=== PATIENT | female | born 1935 | race Caucasian/White ===

== ENCOUNTER 2017-10-14 14:25 | Inpatient (IN) ==
[2017-10-14 15:55] LABS: Basophils # 0.1 10*3/uL (0.0-0.2); Basophils % 0.6 % (0.0-0.8); Eosinophils # 0.2 10*3/uL (0.0-0.87); Eosinophils % 1.9 % (0.00-10.9); Hematocrit 36.6 VOL% (35.7-47.0); Hemoglobin 11.9 GM/DL (12.0-16.0); Immature Granulocytes % 0.3 %; Immature Granulocytes Absolute 0.02 #; Lymphocytes # 1.7 10*3/uL (1.4-4.0); Lymphocytes % 21.4 % (21.3-54.2); Mean Corpuscular HGB Conc 32.5 GM/DL (32-36); Mean Corpuscular Hemoglobin 28 PG (27-34); Mean Corpuscular Volume 87.1 FL (87-102); Mean Platelet Volume 12.7 FL (9.6-12.0); Monocytes # 0.7 10*3/uL (0.11-0.8); Monocytes % 8.5 % (1.7-12.7); Neutrophils # 5.3 10*3/uL (1.4-7.4); Neutrophils % 67.3 % (38.7-73.9); Platelet Count 202 T/CUMM (130-400); Red Cell Distribution Width 12.6 % (9.3-17.3); White Blood Count 7.9 T/CUMM (4-12)
[2017-10-14 16:04] LABS: PT Patient Result 10.6 SECS; Partial Thromboplastin Time 25.4 SECS (0-40)
[2017-10-14 16:15] LABS: Alanine Aminotransferase 25 U/L (13-56); Albumin 3.7 G/DL (3.4-5.0); Alkaline Phosphatase 55 U/L (45-117); Aspartate Amino Transferase 19 U/L (0-37); Bilirubin,Total < 0.39 MG/DL (0.2-1.0); Calcium 9.4 MG/DL (8.5-10.1); Total Protein 6.5 G/DL (6.4-8.3)
[2017-10-14 16:16] LABS: Blood Urea Nitrogen 17 MG/DL (7-18); Glucose 129 MG/DL (74-106); Osmolality,Calculated 276.8 MOS/KG (273-304); Potassium 4.3 MMOL/L (3.5-5.1); Sodium 137 MMOL/L (136-145)
[2017-10-14] MEDS ORDERED: ASPIRIN 325 MG TABLET PO STA (16:58)
[2017-10-14] MEDS ORDERED: NITROGLYCERIN SL 0.4 MG TABLET SL PRN (16:58)
[2017-10-14] MEDS ORDERED: NITROGLYCERIN 2% OINT 1 INCH/GM PACK TOP STA (16:58)
[2017-10-14] MEDS ORDERED: ENOXAPARIN 60 MG/0.6 ML SYRINGE SUBCUT STA (16:58)
[2017-10-14] MEDS ORDERED: MORPHINE 2 MG/1 ML SYRINGE IV STA (17:00)
[2017-10-14] MEDS ORDERED: ONDANSETRON 4 MG/2 ML VIAL IV STA (17:00)
[2017-10-14] MEDS ORDERED: DOCUSATE SODIUM 100 MG CAPSULE PO PRN (18:22)
[2017-10-14] MEDS ORDERED: ZALEPLON 5 MG CAPSULE PO PRN (18:22)
[2017-10-14] MEDS ORDERED: guaiFENesin/DM ER 600-30 MG TABLET PO PRN (18:22)
[2017-10-14] MEDS ORDERED: ACETAMINOPHEN 325 MG TABLET PO PRN (18:22)
[2017-10-14] MEDS ORDERED: MAGNESIUM SULF RIDER 4 GM in PREMIX 1 EACH IV PRN (18:22)
[2017-10-14] MEDS ORDERED: POTASSIUM CHLORIDE 20 MEQ TABLET PO PRN (18:22)
[2017-10-14] MEDS ORDERED: MAGNESIUM SULF RIDER 2 GM in PREMIX 1 EACH IV PRN ×2 (18:22→19:18)
[2017-10-14] MEDS ORDERED: MORPHINE 2 MG/1 ML SYRINGE ONE (18:23)
[2017-10-14] MEDS ORDERED: NITROGLYCERIN 2% OINT 1 INCH/GM PACK TOP ONE (18:23)
[2017-10-14] MEDS ORDERED: ENOXAPARIN 60 MG/0.6 ML SYRINGE ONE (18:23)
[2017-10-14] MEDS ORDERED: ONDANSETRON 4 MG/2 ML VIAL ONE (18:23)
[2017-10-14] MEDS ORDERED: ASPIRIN 325 MG TABLET ONE (18:24)
[2017-10-14] MEDS ORDERED: GLUCAGON 1 MG VIAL IM PRN (18:29)
[2017-10-14] MEDS ORDERED: DEXTROSE 50% 25 GM/50 ML VIAL IV PRN (18:29)
[2017-10-14] MEDS ORDERED: DIAZEPAM 5 MG TABLET PO ONE (19:18)
[2017-10-14] MEDS ORDERED: diphenhydrAMINE CAP 25 MG CAPSULE PO ONE (19:18)
[2017-10-14] MEDS ORDERED: POTASSIUM CHLORIDE RIDER 10 MEQ in PREMIX 1 EACH IV PRN (19:18)
[2017-10-14 20:43] LABS: Troponin I Only 0.742 NG/ML (0.00-0.045)
[2017-10-14] MEDS ORDERED: PANTOPRAZOLE 40 MG TABLET PO ONE (21:28)
[2017-10-14] MEDS ORDERED: ALPRAZolam 0.5 MG TABLET ONE (21:28)
[2017-10-14] MEDS ORDERED: CARVEDILOL 3.125 MG TABLET ONE (21:28)
[2017-10-14] MEDS ORDERED: INSULIN LISPRO 100 UNIT/ML SUBCUT ONE (21:30)
[2017-10-14] MEDS: LISINOPRIL 10 MG TABLET PO SCH (21:50)
[2017-10-14] MEDS: CARVEDILOL 3.125 MG TABLET PO SCH (21:50)
[2017-10-14] MEDS: INSULIN LISPRO 100 UNIT/ML SUBCUT SCH (21:50)
[2017-10-14] MEDS: PANTOPRAZOLE 40 MG TABLET PO SCH (21:50)
[2017-10-14] MEDS: ALPRAZolam 0.5 MG TABLET PO PRN (21:50)
[2017-10-14] MEDS: ROSUVASTATIN 20 MG TABLET PO SCH (21:55)
[2017-10-14 22:14] LABS: Troponin I Only 0.826 NG/ML (0.00-0.045)
[2017-10-15 04:27] LABS: Basophils # 0.1 10*3/uL (0.0-0.2); Basophils % 0.9 % (0.0-0.8); Eosinophils # 0.2 10*3/uL (0.0-0.87); Eosinophils % 2.9 % (0.00-10.9); Hematocrit 32.2 VOL% (35.7-47.0); Hemoglobin 10.8 GM/DL (12.0-16.0); Immature Granulocytes % 0.2 %; Immature Granulocytes Absolute 0.01 #; Lymphocytes # 2.2 10*3/uL (1.4-4.0); Lymphocytes % 37.1 % (21.3-54.2); Mean Corpuscular HGB Conc 33.5 GM/DL (32-36); Mean Corpuscular Hemoglobin 29 PG (27-34); Mean Corpuscular Volume 85.4 FL (87-102); Mean Platelet Volume 12.3 FL (9.6-12.0); Monocytes # 0.6 10*3/uL (0.11-0.8); Monocytes % 10.3 % (1.7-12.7); Neutrophils # 2.8 10*3/uL (1.4-7.4); Neutrophils % 48.6 % (38.7-73.9); Platelet Count 171 T/CUMM (130-400); Red Blood Count 3.77 MC/CUMM (3.8-5.5); Red Cell Distribution Width 12.8 % (9.3-17.3); White Blood Count 5.8 T/CUMM (4-12)
[2017-10-15] MEDS ORDERED: DIAZEPAM 5 MG TABLET PO ONE (06:00)
[2017-10-15] MEDS ORDERED: diphenhydrAMINE CAP 25 MG CAPSULE PO ONE (06:00)
[2017-10-15 07:50] LABS: Osmolality,Calculated 280.5 MOS/KG (273-304); Risk Ratio 6.6; Thyroid Stimulating Hormone 3.54 uIU/ml (0.358-3.74)
[2017-10-15] MEDS ORDERED: diphenhydrAMINE CAP 50 MG CAPSULE ONE (08:25)
[2017-10-15] MEDS ORDERED: DIAZEPAM 5 MG TABLET ONE (08:25)
[2017-10-15] MEDS ORDERED: ENOXAPARIN 40 MG/0.4 ML SYRINGE SUBCUT SCH (09:00)
[2017-10-15] MEDS ORDERED: LIDOCAINE 1% 20 ML VIAL ONE (09:09)
[2017-10-15] MEDS ORDERED: MIDAZOLAM 2 MG/2 ML VIAL ONE (09:10)
[2017-10-15] MEDS ORDERED: fentaNYL 100 MCG/2 ML VIAL ONE (09:10)
[2017-10-15] MEDS ORDERED: ENOXAPARIN 30 MG/0.3 ML SYRINGE ONE (09:31)
[2017-10-15] MEDS ORDERED: TIROFIBAN 5,000 MCG/100 ML PREMIX IV ONE (09:32)
[2017-10-15] MEDS ORDERED: TICAGRELOR 90 MG TABLET ONE (10:10)
[2017-10-15] MEDS ORDERED: SODIUM CHLORIDE 0.9% 1,000 ML IV SCH (10:30)
[2017-10-15] MEDS ORDERED: HYDROmorphone 2 MG/1 ML VIAL IV PRN (10:33)
[2017-10-15] MEDS ORDERED: HYDROmorphone 2 MG/1 ML VIAL ONE (10:54)
[2017-10-15] MEDS: LEVOTHYROXINE 50 MCG TABLET PO SCH (15:51)
[2017-10-15] MEDS: INSULIN LISPRO 100 UNIT/ML SUBCUT SCH ×4 (15:51→22:19)
[2017-10-15] MEDS: CARVEDILOL 3.125 MG TABLET PO SCH ×2 (15:52→22:19)
[2017-10-15] MEDS: ALPRAZolam 0.5 MG TABLET PO PRN (16:05)
[2017-10-15] MEDS: LISINOPRIL 10 MG TABLET PO SCH (16:05)
[2017-10-15] MEDS: ASPIRIN EC 81 MG TABLET PO SCH (16:06)
[2017-10-15] MEDS: VITAMIN E 1000 UNIT CAPSULE PO SCH (16:06)
[2017-10-15] MEDS: FOLIC ACID 1 MG TABLET PO SCH (16:06)
[2017-10-15] MEDS: PANTOPRAZOLE 40 MG TABLET PO SCH (22:18)
[2017-10-15] MEDS: TICAGRELOR 90 MG TABLET PO SCH (22:18)
[2017-10-15] MEDS: ROSUVASTATIN 20 MG TABLET PO SCH (22:24)
[2017-10-16] MEDS: LEVOTHYROXINE 50 MCG TABLET PO SCH (06:54)
[2017-10-16 06:55] LABS: Basophils % 0.7 % (0.0-0.8); Eosinophils # 0.2 10*3/uL (0.0-0.87); Eosinophils % 2.7 % (0.00-10.9); Hematocrit 31.5 VOL% (35.7-47.0); Hemoglobin 10.9 GM/DL (12.0-16.0); Immature Granulocytes % 0.4 %; Immature Granulocytes Absolute 0.02 #; Lymphocytes # 1.1 10*3/uL (1.4-4.0); Lymphocytes % 20.7 % (21.3-54.2); Mean Corpuscular HGB Conc 34.6 GM/DL (32-36); Mean Corpuscular Hemoglobin 29 PG (27-34); Mean Corpuscular Volume 84.5 FL (87-102); Mean Platelet Volume 11.8 FL (9.6-12.0); Monocytes # 0.7 10*3/uL (0.11-0.8); Monocytes % 12.3 % (1.7-12.7); Neutrophils # 3.5 10*3/uL (1.4-7.4); Neutrophils % 63.2 % (38.7-73.9); Platelet Count 168 T/CUMM (130-400); Red Blood Count 3.73 MC/CUMM (3.8-5.5); Red Cell Distribution Width 12.6 % (9.3-17.3); White Blood Count 5.5 T/CUMM (4-12)
[2017-10-16 07:32] LABS: Calcium 8.3 MG/DL (8.5-10.1); Osmolality,Calculated 280.4 MOS/KG (273-304)
[2017-10-16 07:36] LABS: CKMB % 6.8 %
[2017-10-16 07:45] LABS: Troponin I Only 1.83 NG/ML (0.00-0.045)
[2017-10-16] MEDS: LACTULOSE 20 GM/30 ML UDCUP PO PRN ×2 (10:03→16:40)
[2017-10-16] MEDS: INSULIN LISPRO 100 UNIT/ML SUBCUT SCH ×4 (10:04→21:45)
[2017-10-16] MEDS: ALPRAZolam 0.5 MG TABLET PO PRN ×2 (10:05→21:39)
[2017-10-16] MEDS: VITAMIN E 1000 UNIT CAPSULE PO SCH (10:05)
[2017-10-16] MEDS: TICAGRELOR 90 MG TABLET PO SCH ×2 (10:06→21:39)
[2017-10-16] MEDS: LISINOPRIL 10 MG TABLET PO SCH (10:06)
[2017-10-16] MEDS: FOLIC ACID 1 MG TABLET PO SCH (10:07)
[2017-10-16] MEDS: ASPIRIN EC 81 MG TABLET PO SCH (10:07)
[2017-10-16] MEDS: CARVEDILOL 3.125 MG TABLET PO SCH ×2 (10:07→21:39)
[2017-10-16] MEDS: ROSUVASTATIN 20 MG TABLET PO SCH (21:39)
[2017-10-16] MEDS: PANTOPRAZOLE 40 MG TABLET PO SCH (21:39)
[2017-10-17 03:15] LABS: Basophils % 0.7 % (0.0-0.8); Eosinophils # 0.1 10*3/uL (0.0-0.87); Eosinophils % 2.4 % (0.00-10.9); Hematocrit 32.4 VOL% (35.7-47.0); Hemoglobin 11.1 GM/DL (12.0-16.0); Immature Granulocytes % 0.3 %; Immature Granulocytes Absolute 0.02 #; Lymphocytes # 1.6 10*3/uL (1.4-4.0); Lymphocytes % 27.8 % (21.3-54.2); Mean Corpuscular HGB Conc 34.3 GM/DL (32-36); Mean Corpuscular Hemoglobin 29 PG (27-34); Mean Corpuscular Volume 84.4 FL (87-102); Mean Platelet Volume 11.4 FL (9.6-12.0); Monocytes # 0.8 10*3/uL (0.11-0.8); Monocytes % 12.9 % (1.7-12.7); Neutrophils # 3.3 10*3/uL (1.4-7.4); Neutrophils % 55.9 % (38.7-73.9); Platelet Count 172 T/CUMM (130-400); Red Blood Count 3.84 MC/CUMM (3.8-5.5); Red Cell Distribution Width 12.7 % (9.3-17.3); White Blood Count 5.9 T/CUMM (4-12)
[2017-10-17] MEDS: LEVOTHYROXINE 50 MCG TABLET PO SCH (06:15)
[2017-10-17 06:28] LABS: Calcium 8.3 MG/DL (8.5-10.1); Osmolality,Calculated 283.1 MOS/KG (273-304)
[2017-10-17] MEDS ORDERED: MAGNESIUM SULF RIDER 2 GM in PREMIX 1 EACH IV PRN (08:41)
[2017-10-17] MEDS ORDERED: POTASSIUM CHLORIDE RIDER 10 MEQ in PREMIX 1 EACH IV PRN (08:41)
[2017-10-17] MEDS: ALPRAZolam 0.5 MG TABLET PO PRN ×2 (09:49→21:16)
[2017-10-17] MEDS: TICAGRELOR 90 MG TABLET PO SCH ×2 (09:49→21:14)
[2017-10-17] MEDS: ASPIRIN EC 81 MG TABLET PO SCH (09:49)
[2017-10-17] MEDS: LISINOPRIL 10 MG TABLET PO SCH (09:49)
[2017-10-17] MEDS: FOLIC ACID 1 MG TABLET PO SCH (09:49)
[2017-10-17] MEDS: CARVEDILOL 3.125 MG TABLET PO SCH ×2 (09:50→21:15)
[2017-10-17] MEDS: VITAMIN E 1000 UNIT CAPSULE PO SCH (09:50)
[2017-10-17] MEDS: INSULIN LISPRO 100 UNIT/ML SUBCUT SCH ×4 (09:50→21:22)
[2017-10-17] MEDS: ROSUVASTATIN 20 MG TABLET PO SCH (21:15)
[2017-10-17] MEDS: PANTOPRAZOLE 40 MG TABLET PO SCH (21:16)
[2017-10-17] MEDS ORDERED: SODIUM CHLORIDE 0.9% 1,000 ML IV SCH (22:00)
[2017-10-18 04:46] LABS: Basophils % 0.7 % (0.0-0.8); Eosinophils # 0.2 10*3/uL (0.0-0.87); Eosinophils % 3.2 % (0.00-10.9); Hematocrit 32.5 VOL% (35.7-47.0); Hemoglobin 10.8 GM/DL (12.0-16.0); Immature Granulocytes % 0.4 %; Immature Granulocytes Absolute 0.02 #; Lymphocytes # 1.7 10*3/uL (1.4-4.0); Lymphocytes % 29.4 % (21.3-54.2); Mean Corpuscular HGB Conc 33.2 GM/DL (32-36); Mean Corpuscular Hemoglobin 29 PG (27-34); Mean Corpuscular Volume 86.2 FL (87-102); Mean Platelet Volume 11.7 FL (9.6-12.0); Monocytes # 0.7 10*3/uL (0.11-0.8); Monocytes % 13.1 % (1.7-12.7); Neutrophils % 53.2 % (38.7-73.9); Platelet Count 159 T/CUMM (130-400); Red Blood Count 3.77 MC/CUMM (3.8-5.5); Red Cell Distribution Width 12.5 % (9.3-17.3); White Blood Count 5.6 T/CUMM (4-12)
[2017-10-18 05:28] LABS: Calcium 8.4 MG/DL (8.5-10.1); Osmolality,Calculated 285.4 MOS/KG (273-304)
[2017-10-18] MEDS: LEVOTHYROXINE 50 MCG TABLET PO SCH (05:52)
[2017-10-18] MEDS ORDERED: diphenhydrAMINE CAP 25 MG CAPSULE PO ONE (06:00)
[2017-10-18] MEDS ORDERED: DIAZEPAM 5 MG TABLET PO ONE (06:00)
[2017-10-18] MEDS: ASPIRIN EC 81 MG TABLET PO SCH ×2 (06:58→09:55)
[2017-10-18] MEDS: TICAGRELOR 90 MG TABLET PO SCH ×3 (06:58→20:39)
[2017-10-18] MEDS ORDERED: LIDOCAINE 1% 20 ML VIAL ONE (07:10)
[2017-10-18] MEDS ORDERED: MIDAZOLAM 2 MG/2 ML VIAL ONE (07:25)
[2017-10-18] MEDS ORDERED: fentaNYL 100 MCG/2 ML VIAL ONE (07:26)
[2017-10-18] MEDS ORDERED: TICAGRELOR 90 MG TABLET ONE (08:06)
[2017-10-18] MEDS ORDERED: SODIUM CHLORIDE 0.9% 1,000 ML IV SCH (08:30)
[2017-10-18] MEDS: INSULIN LISPRO 100 UNIT/ML SUBCUT SCH ×4 (08:51→20:51)
[2017-10-18] MEDS: CARVEDILOL 3.125 MG TABLET PO SCH ×2 (09:54→20:39)
[2017-10-18] MEDS: LISINOPRIL 10 MG TABLET PO SCH (09:54)
[2017-10-18] MEDS: VITAMIN E 1000 UNIT CAPSULE PO SCH (09:54)
[2017-10-18] MEDS: FOLIC ACID 1 MG TABLET PO SCH (09:54)
[2017-10-18] MEDS: ALPRAZolam 0.5 MG TABLET PO PRN (14:19)
[2017-10-18] MEDS: PANTOPRAZOLE 40 MG TABLET PO SCH (20:39)
[2017-10-18] MEDS ORDERED: ROSUVASTATIN 20 MG TABLET PO SCH (21:00)
[2017-10-19 05:26] LABS: Basophils % 0.6 % (0.0-0.8); Eosinophils # 0.3 10*3/uL (0.0-0.87); Eosinophils % 3.7 % (0.00-10.9); Hematocrit 32.8 VOL% (35.7-47.0); Hemoglobin 11.5 GM/DL (12.0-16.0); Immature Granulocytes % 0.3 %; Immature Granulocytes Absolute 0.02 #; Lymphocytes # 1.3 10*3/uL (1.4-4.0); Mean Corpuscular HGB Conc 35.1 GM/DL (32-36); Mean Corpuscular Hemoglobin 29 PG (27-34); Mean Corpuscular Volume 83.5 FL (87-102); Mean Platelet Volume 11.6 FL (9.6-12.0); Monocytes # 0.8 10*3/uL (0.11-0.8); Monocytes % 11.6 % (1.7-12.7); Neutrophils # 4.4 10*3/uL (1.4-7.4); Neutrophils % 64.8 % (38.7-73.9); Platelet Count 182 T/CUMM (130-400); Red Blood Count 3.93 MC/CUMM (3.8-5.5); Red Cell Distribution Width 12.6 % (9.3-17.3); White Blood Count 6.8 T/CUMM (4-12)
[2017-10-19] MEDS: LEVOTHYROXINE 50 MCG TABLET PO SCH (05:46)
[2017-10-19 06:01] LABS: Blood Urea Nitrogen 20 MG/DL (7-18); Calcium 8.5 MG/DL (8.5-10.1); Glucose 202 MG/DL (74-106); Osmolality,Calculated 287.4 MOS/KG (273-304); Sodium 140 MMOL/L (136-145)
[2017-10-19 06:02] LABS: Troponin I Only 0.345 NG/ML (0.00-0.045)
[2017-10-19] MEDS: INSULIN LISPRO 100 UNIT/ML SUBCUT SCH ×2 (08:57→11:56)
[2017-10-19] MEDS: ASPIRIN EC 81 MG TABLET PO SCH (09:02)
[2017-10-19] MEDS: TICAGRELOR 90 MG TABLET PO SCH (09:03)
[2017-10-19] MEDS: FOLIC ACID 1 MG TABLET PO SCH (09:03)
[2017-10-19] MEDS: LISINOPRIL 10 MG TABLET PO SCH (09:03)
[2017-10-19] MEDS: CARVEDILOL 3.125 MG TABLET PO SCH (09:03)
[2017-10-19] MEDS: VITAMIN E 1000 UNIT CAPSULE PO SCH (09:04)
[2017-10-19 10:54] VITALS: BP 127/57
== END 2017-10-19 15:32 | disposition home or self-care (01) | DRG 247 ==
LOC: N.ED 14:25 → N.TELEN 10-15 08:53 → N.CL 10-15 10:56 → N.TELEN 10-15 14:01
PROVIDERS: ADMIT Internal Medicine Cardiovascular Disease; ATTEND Internal Medicine Cardiovascular Disease
PROC: CLCCHCL (ICD-10-PCS; 2017-10-15 09:15)